=== PATIENT | male | born 1985 | race Caucasian/White ===

== ENCOUNTER 2022-10-02 16:02 | Emergency (ER) | payer OTHER ==
[~2022-10-02] VITALS: Ht 172.7 cm; Wt 107.5 kg
[2022-10-02 16:33] VITALS: BP 140/94
[2022-10-02 17:11] LABS: APPEARANCE,URINE CLEAR (CLEAR); BILIRUBIN,URINE NEGATIVE (NEGATIVE); BLOOD, URINE NEGATIVE (NEGATIVE); COLOR,URINE YELLOW (YELLOW); LEUKOCYTE ESTERASE ,URINE NEGATIVE (NEGATIVE); NITRITE, URINE NEGATIVE (NEGATIVE); PH,URINE 5.5 (5.0-9.0); UGLUCOSE NEGATIVE (NEGATIVE)
[2022-10-02] MEDS ORDERED: KETOROLAC 30 MG/ML VIAL IM ONE (17:45)
--- NOTE | 2022-10-02 18:13 | NUR ---
MEDICATED PATIENT IN CHAIR C
[2022-10-02] MEDS ORDERED: DOXY-690 PO ×2 (18:28→18:39)
[2022-10-02] MEDS ORDERED: IBUP-2213 PO ×2 (18:28→18:39)
[2022-10-02] MEDS ORDERED: cefTRIAXone 500 MG in LIDOCAINE MPF 1% 1 ML IM ONE (18:30)
[2022-10-02] MEDS ORDERED: cefTRIAXone 500 MG VIAL ONE (19:11)
[2022-10-02] MEDS ORDERED: LIDOCAINE MPF 1% 5 ML ONE (19:11)
--- NOTE | 2022-10-02 19:17 | NUR ---
Patient discharged with v/s stable. Written and verbal after care instructions given and explained. Patient verbalized understanding. Ambulatory with steady gait. All questions addressed prior to discharge. Advised to follow up with PMD.
== END 2022-10-02 19:17 | disposition home or self-care (01) ==
LOC: MED 16:02
DX: N50.812 Left testicular pain (principal)
CPT/HCPCS: 76870; 81003; 87491; 96372; 99285; J0696; J1885; J2001